=== PATIENT | male | born 1970 | race African-American/Black ===

== ENCOUNTER 2020-09-03 22:18 | Emergency (ER) | payer MEDICAID ==
[~2020-09-03] VITALS: Ht 175.3 cm; Wt 102.0 kg
[2020-09-03] MEDS ORDERED: IBUPROFEN 800MG TABLET PO ONE (23:00)
[2020-09-03] MEDS ORDERED: CLINDAMYCIN HCL 150MG CAPSULE PO ONE (23:00)
[2020-09-03] MEDS ORDERED: IBUP-2029 MT (23:05)
[2020-09-03] MEDS ORDERED: CLIN300C12 MT (23:05)
[2020-09-03] MEDS ORDERED: T3 PO ×2 (23:05→23:31)
[2020-09-03 23:42] VITALS: BP 139/88
== END 2020-09-03 23:43 | disposition home or self-care (01) ==
LOC: ER 22:18
DX: L02.214 Cutaneous abscess of groin (principal); Z88.0 Allergy status to penicillin; Z90.49 Acquired absence of other specified parts of digestive tract
CPT/HCPCS: 99283

== ENCOUNTER 2021-05-06 13:32 | Emergency (ER) | payer MEDICAID ==
[~2021-05-06] VITALS: Ht 175.3 cm; Wt 100.0 kg
[~2021-05-06 13:32] MED LIST: CLIN300C12 MT; IBUP-2029 MT
[2021-05-06 14:27] VITALS: BP 172/111
== END 2021-05-06 15:20 | disposition left against medical advice (07) ==
LOC: ER 13:32
DX: Z53.21 Procedure and treatment not carried out due to patient leaving prior to being seen by health care provider (principal)